=== PATIENT | male | born 1970 | race African-American/Black ===

== ENCOUNTER 2022-09-29 17:12 | Emergency (ER) | payer OTHER ==
[~2022-09-29] VITALS: Ht 172.7 cm; Wt 71.0 kg
[2022-09-29 17:16] VITALS: BP 146/86
[2022-09-29] MEDS ORDERED: LIDOCAINE 5% PATCH TOP SCH (18:30)
[2022-09-29] MEDS ORDERED: DEXAMETHASONE 10 MG/ML VIAL IM ONE (18:30)
[2022-09-29] MEDS ORDERED: HYDROCODONE/ACETAMINOPHEN 5/325MG TABLET PO ONE (18:30)
[2022-09-29] MEDS ORDERED: KETOROLAC 60MG/2ML VIAL IM ONE (18:30)
[2022-09-29] MEDS ORDERED: IBUP-2029 MT ×2 (19:25→19:26)
[2022-09-29] MEDS ORDERED: LIDO700A15 TP ×2 (19:25→19:26)
[2022-09-29] MEDS ORDERED: BACL20TA MT ×2 (19:25→19:26)
== END 2022-09-29 19:48 | disposition home or self-care (01) ==
LOC: ER 17:12
DX: M54.42 Lumbago with sciatica, left side (principal); R03.0 Elevated blood-pressure reading, without diagnosis of hypertension
CPT/HCPCS: 96372; 99284; J1100; J1885; Z7610